=== PATIENT | male | born 1955 | race Caucasian/White ===

== ENCOUNTER → 2016-12-13 | Outpatient (CLI) | payer MEDICARE, OTHER ==
[~2016-12-13] MED LIST: ACETAMINOPHEN PO; ATROVENT; ATROVENT NEB; BACID PO; BACLOFEN10 MG PO; BUDESONIDE0.5 MG/2 M IH; CARDURA1 MG; CARDURA1 MG PEG; CENTRUM; CERTAGEN PEG; CETIRIZINE5 MG/5 ML PO; CLOBETASOL 0.0560 GM TOP; E.E.S. 200200 MG/5 M; E.E.S. 200200 MG/51 PEG; ISORDIL10 MG PEG; LYRICA75 MG PO; METHENAMINE HIPP1 GM PEG; NEXIUM PO; NITROSTAT0.4 MG SL; NYSTATIN100000 UNI TOP; OCEAN45 ML; PREVACID30 MG/PACK PEG; PROVENTIL0.83 MG/ML IH; PROVENTIL0.83 MG/ML NEB; SERTRALINE HCL50 MG PEG; SINGULAIR5 MG PO; TRICOR PEG; VIT D PEG
== END | disposition home or self-care (01) ==
LOC: CSSDAY 12:00
DX: M81.0 Age-related osteoporosis without current pathological fracture (principal)
CPT/HCPCS: 96372; J0897

== ENCOUNTER 2017-02-23 00:23 | Emergency (ER) | payer MEDICARE, OTHER ==
--- NOTE | ~2017-02-23 | CR142 ---
[facility] A Service of [facility] RADIOLOGY TEXT RESULTS PATIENT: CURTIS CUNNINGHAM LOCATION: [facility] : 55 UNIT #: [id number] AGE: [address]: Eron Romero MD SEX: M ORDER DR: [id number] [facility] [address] [place], [place] [address] [id number] MR#: [id number] Acc #: [id number] NAME: CURTIS CUNNINGHAM : 1955 SEX: M STUDY DATE/TIME: 02/23/2017 1:19 UNIT: [facility] ROOM: STUDY DESCRIPTION: CR Hand Min 3 Views Rt Attending Physician: Eron Romero M.D. Ordering Physician: Eron Romero M.D. Primary Care Physician: Anastacio Miller Sr., M.D. MEDICAL IMAGING REPORT This report is preliminary unless electronic signature is present EXAM Right hand series. INDICATIONS Right first digit pain and swelling today. PROCEDURE Three views of the right hand. COMPARISON None. FINDINGS Degraded by positioning. There is a nondisplaced fracture at the base of the proximal phalanx of the first digit. No definite articular involvement. IMPRESSION Nondisplaced fracture at the base of the proximal phalanx of the first digit. Dictated by... Michael Daniels M.D. THIS IS AN ELECTRONICALLY VERIFIED REPORT Michael Daniels M.D. at 02/23/2017 9:53 PM EED/karishma TD: 02/23/2017 11:15 JOB #: [id number] MEDICAL IMAGING REPORT Page 1 of 1 COPY
== END 2017-02-23 04:45 | disposition short-term general hospital (02) ==
LOC: CED 00:23
DX: S62.511A Displaced fracture of proximal phalanx of right thumb, initial encounter for closed fracture (principal); Z88.8 Allergy status to other drugs, medicaments and biological substances; X58.XXXA Exposure to other specified factors, initial encounter; Y92.89 Other specified places as the place of occurrence of the external cause
CPT/HCPCS: 29125; 73130; 99284